=== PATIENT | male | born 1950 | race Two or more races ===

== ENCOUNTER 2018-12-28 09:33 | Inpatient (IN) | payer MEDICARE, MEDICAID ==
[~2018-12-28] VITALS: Ht 165.1 cm; Wt 72.6 kg
[2018-12-28] MEDS ORDERED: SODIUM CHLORIDE 0.9% 1,000 ML IV ONE ×2 (10:24→12:35)
[2018-12-28] MEDS ORDERED: IBUPROFEN 600MG TABLET PO STA (10:24)
[2018-12-28 10:36] LABS: BASOPHILS % 0.4 % (0.0-2.0); EOSINOPHILS % 0.9 % (0.0-5.0); HEMATOCRIT. 32.8 % (42.0-52.0); HEMOGLOBIN. 10.9 g/dL (14.0-18.0); LYMPHOCYTES % 9.3 % (20.0-50.0); MEAN CORPUSCULAR HEMOGLOBIN 29.5 pg (28.0-32.0); MEAN CORPUSCULAR VOLUME 88.9 fL (80.0-94.0); MEAN PLATELET VOLUME 7.2 fl (7.4-10.4); MONOCYTES % 5.2 % (2.0-8.0); NEUTROPHILS % 84.2 % (40.0-76.0); PLATELET 322 x1000/uL (130-400); RED BLOOD CELL COUNT 3.69 mill/uL (4.7-6.1); RED CELL DISTRIBUTION WIDTH 13.6 % (11.6-14.6)
[2018-12-28 10:43] LABS: CHLORIDE 102 mEq/L (98-107)
[2018-12-28 10:46] LABS: INR 2.1; PROTHROMBIN TIME 20.9 sec (9.6-11.0)
[2018-12-28 10:51] LABS: CREATINE KINASE 210 IU/L (39-308)
[2018-12-28] MEDS ORDERED: ONDANSETRON HCL 4MG/2ML INJ IV STA (11:45)
[2018-12-28] MEDS ORDERED: MORPHINE SULFATE 4 MG/ML CPJ (NOT FOR IM USE) IV STA (11:45)
[2018-12-28 12:46] LABS: C REACTIVE PROTEIN QUANT 1.2 mg/L (0.0-3.0)
[2018-12-28 13:53] LABS: CLARITY URINE CLEAR (CLEAR); COLOR URINE YELLOW (YELLOW); KETONES URINE NEGATIVE (NEGATIVE); LEUKOCYTE ESTERASE URINE NEGATIVE (NEGATIVE); NITRITE URINE NEGATIVE (NEGATIVE); OCCULT BLOOD URINE NEGATIVE (NEGATIVE); PH URINE 5.5 (4.5-8.0); PROTEIN URINE 1+ (NEGATIVE); SPECIFIC GRAVITY URINE 1.012 (1.005-1.030); UROBILINOGEN URINE 0.2 E.U./dL (0.2-1.0)
[2018-12-28] MEDS: DEXT 5%/0.9% NACL 1,000 ML IV SCH ×2 (17:00→21:42)
[2018-12-28] MEDS ORDERED: DOCUSATE SODIUM 100MG CAPSULE PO PRN (17:00)
[2018-12-28] MEDS ORDERED: MAGNESIUM/ALUMINUM HYDROXIDE/SIMETHICONE 30ML UDC PO PRN (17:00)
[2018-12-28] MEDS ORDERED: ONDANSETRON HCL 4MG/2ML INJ IV PRN (17:00)
[2018-12-28] MEDS ORDERED: ACETAMINOPHEN 650MG SUPP PR PRN (17:00)
[2018-12-28] MEDS ORDERED: IPRATROPIUM/ALBUTEROL 0.5-3(2.5)MG/3ML NEB NEB PRN (17:00)
[2018-12-28] MEDS ORDERED: AMLODIPINE 5MG TABLET PO SCH (17:00)
[2018-12-28] MEDS ORDERED: CLONIDINE 0.1MG TABLET PO PRN (17:00)
[2018-12-28] MEDS ORDERED: DIPHENHYDRAMINE 50MG/ML VIAL IV PRN (17:00)
[2018-12-28] MEDS ORDERED: ACETAMINOPHEN 325MG TABLET PO PRN (17:00)
[2018-12-28] MEDS ORDERED: NA PHOS,M-B/NA PHOS,DI-BA ENEMA 118ML PR PRN (17:00)
[2018-12-28] MEDS ORDERED: GUAIFENESIN 200MG/10ML SUGAR FREE UDC PO PRN (17:00)
[2018-12-28] MEDS ORDERED: LORAZEPAM 0.5MG TABLET PO PRN (17:00)
[2018-12-28] MEDS ORDERED: PIPERACILLIN/TAZOBACTAM 2.25 G in DEXTROSE 5% WATER 50 ML IV SCH (17:00)
[2018-12-28] MEDS ORDERED: HYDRALAZINE 20MG/ML VIAL IV NR (17:32)
[2018-12-28 20:00] VITALS: BP 143/65
[2018-12-28 20:03] VITALS: BP 143/65
[2018-12-28] MEDS: MORPHINE SULFATE 2 MG/ML CPJ (NOT FOR IM USE) IV PRN (20:12)
[2018-12-28] MEDS ORDERED: FAMOTIDINE 20MG TABLET PO SCH (21:00)
[2018-12-28] MEDS: PIPERACILLIN/TAZOBACTAM 2.25 G in DEXTROSE 5% WATER 50 ML IV SCH (21:42)
[2018-12-28] MEDS: AMLODIPINE 5MG TABLET PO SCH (21:42)
[2018-12-28] MEDS ORDERED: VANCOMYCIN 1500MG in DEXTROSE 5% WATER 250ML IV NR (23:00)
[2018-12-29] VITALS: BP 107/65
[2018-12-29] MEDS: MORPHINE SULFATE 2 MG/ML CPJ (NOT FOR IM USE) IV PRN ×2 (01:47→09:28)
[2018-12-29 03:51] LABS: *BARBITURATES SCREEN URINE NEGATIVE (NEGATIVE); CANNABINOID URINE SCREEN NEGATIVE (NEGATIVE); PHENCYCLIDINE URINE SCREEN NEGATIVE (NEGATIVE)
[2018-12-29 03:52] LABS: *AMPHETAMINES SCREEN URINE NEGATIVE (NEGATIVE); *BENZODIAZEPINES SCREEN URINE NEGATIVE (NEGATIVE); *COCAINE SCREEN URINE NEGATIVE (NEGATIVE); METHADONE URINE SCREEN NEGATIVE (NEGATIVE); OPIATES URINE SCREEN PRESUMTIVE POSITIVE (NEGATIVE)
[2018-12-29 04:00] VITALS: BP 185/83
[2018-12-29] MEDS: PIPERACILLIN/TAZOBACTAM 2.25 G in DEXTROSE 5% WATER 50 ML IV SCH ×2 (04:59→09:28)
[2018-12-29] MEDS: HYDROCODONE/ACETAMINOPHEN 5/325MG TABLET PO PRN ×2 (05:00→10:56)
[2018-12-29 06:51] LABS: BASOPHILS % 0.4 % (0.0-2.0); EOSINOPHILS % 2.7 % (0.0-5.0); HEMOGLOBIN. 10.9 g/dL (14.0-18.0); LYMPHOCYTES % 11.9 % (20.0-50.0); MEAN CORPUSCULAR HEMOGLOBIN 29.5 pg (28.0-32.0); MEAN CORPUSCULAR VOLUME 89.5 fL (80.0-94.0); MEAN PLATELET VOLUME 7.3 fl (7.4-10.4); MONOCYTES % 7.9 % (2.0-8.0); NEUTROPHILS % 77.1 % (40.0-76.0); PLATELET 258 x1000/uL (130-400); RED BLOOD CELL COUNT 3.69 mill/uL (4.7-6.1)
[2018-12-29 06:54] LABS: INR 1.9; PROTHROMBIN TIME 19.5 sec (9.6-11.0)
[2018-12-29 08:00] VITALS: BP 169/73
[2018-12-29 08:40] LABS: CHLORIDE 109 mEq/L (98-107)
[2018-12-29 09:01] LABS: LDL CHOLESTEROL 87 mg/dL (5-100)
[2018-12-29 09:02] LABS: HDL CHOLESTEROL 32 mg/dL (40-59)
[2018-12-29] MEDS: AMLODIPINE 5MG TABLET PO SCH (09:28)
[2018-12-29 11:28] VITALS: BP 125/79
[2018-12-29] MEDS ORDERED: VANCOMYCIN 1 G PREMIX 200 ML IV SCH (14:00)
== END 2018-12-29 13:50 | disposition left against medical advice (07) | DRG 552 ==
LOC: ER 09:33 → 7WST 16:43 → SUPCPDRO 16:45 → CANRESERV 17:12 → ENRESERV 17:12
PROVIDERS: ADMIT Internal Medicine; ATTEND Internal Medicine
DX: M48.061 Spinal stenosis, lumbar region without neurogenic claudication (principal); N17.9 Acute kidney failure, unspecified; C79.51 Secondary malignant neoplasm of bone; D68.59 Other primary thrombophilia; E87.1 Hypo-osmolality and hyponatremia; C61 Malignant neoplasm of prostate; D64.9 Anemia, unspecified; E11.65 Type 2 diabetes mellitus with hyperglycemia; K80.20 Calculus of gallbladder without cholecystitis without obstruction; N13.9 Obstructive and reflux uropathy, unspecified; Z53.21 Procedure and treatment not carried out due to patient leaving prior to being seen by health care provider; D72.829 Elevated white blood cell count, unspecified; R33.8 Other retention of urine; I10 Essential (primary) hypertension; Z79.84 Long term (current) use of oral hypoglycemic drugs; Z79.899 Other long term (current) drug therapy
CPT/HCPCS: 36415; 71045; 71250; 74176; 80061; 80305; 81003; 82550; 82962; 83036; 83735; 84153; 84439; 84443; 84550; 86140; 93308; 93970; 97162; 99285; J2270; J2405; J2543; J3370; J7030; J7042; J7060; A4315; G0103

== ENCOUNTER 2019-04-03 15:49 | Emergency (ER) | payer MEDICARE, MEDICAID ==
[~2019-04-03] VITALS: Ht 162.6 cm; Wt 69.0 kg
[2019-04-03 18:15] VITALS: BP 188/77
[2019-04-03] MEDS ORDERED: SODIUM CHLORIDE 0.9% 1,000 ML IV ONE (18:23)
[2019-04-03 18:51] LABS: BASOPHILS % 0.8 % (0.0-2.0); EOSINOPHILS % 3.6 % (0.0-5.0); HEMATOCRIT. 30.7 % (42.0-52.0); HEMOGLOBIN. 10.1 g/dL (14.0-18.0); LYMPHOCYTES % 11.7 % (20.0-50.0); MEAN CORPUSCULAR HEMOGLOBIN 28.9 pg (28.0-32.0); MEAN PLATELET VOLUME 7.2 fl (7.4-10.4); MONOCYTES % 7.5 % (2.0-8.0); NEUTROPHILS % 76.4 % (40.0-76.0); PLATELET 154 x1000/uL (130-400); RED BLOOD CELL COUNT 3.49 mill/uL (4.7-6.1); RED CELL DISTRIBUTION WIDTH 14.8 % (11.6-14.6)
[2019-04-03 18:55] LABS: CHLORIDE 102 mEq/L (98-107)
[2019-04-03 18:58] LABS: INR 2.1; PARTIAL THROMBOPLASTIN TIME 36.1 sec (23.4-31.0); PROTHROMBIN TIME 20.4 sec (9.6-11.0)
[2019-04-03] MEDS ORDERED: ENOXAPARIN 80MG/0.8ML SYR SUBCUT ONE (19:45)
[2019-04-03] MEDS ORDERED: HEPARIN 5000 UNITS/ML VIAL IV ONE (20:45)
[2019-04-03] MEDS ORDERED: HEPARIN 25,000 UNITS PREMIX 500 ML IV STA (20:45)
[2019-04-03] MEDS ORDERED: HEPARIN BOLUS PRN aPTT <36 IV (22:00)
[2019-04-03] MEDS ORDERED: HEPARIN BOLUS PRN aPTT 37-44 IV (22:00)
[2019-04-03] MEDS ORDERED: HEPARIN 25,000 UNITS PREMIX 500 ML IV SCH (22:00)
[2019-04-03] MEDS ORDERED: CLONIDINE 0.1MG TABLET PO NR (23:22)
== END 2019-04-04 01:45 | disposition left against medical advice (07) ==
LOC: ER 15:49 → EDBEDREQSVC 20:51 → EDBEDREQTM 20:51 → EDBEDREQ 20:51 → CANRESERV 22:56 → ENRESERV 22:56 → ER 04-04 01:45 → CANBEDREQ 04-04 03:35
DX: R23.3 Spontaneous ecchymoses (principal); I82.412 Acute embolism and thrombosis of left femoral vein; D68.9 Coagulation defect, unspecified; I10 Essential (primary) hypertension; E11.9 Type 2 diabetes mellitus without complications
CPT/HCPCS: 36415; 71045; 80053; 85025; 85610; 85730; 86850; 86900; 86901; 93005; 93970; 96365; 96375; 99291; J1644; J7030; J1650

== ENCOUNTER 2019-04-16 21:43 | Inpatient (IN) | payer MEDICARE, MEDICAID ==
[~2019-04-16] VITALS: Ht 170.2 cm; Wt 71.3 kg
[2019-04-16] MEDS: HYDROCODONE/ACETAMINOPHEN 10/325MG TABLET PO ONE ×2 (22:15→22:27)
[2019-04-16 22:57] LABS: BASOPHILS % 0.6 % (0.0-2.0); EOSINOPHILS % 1.5 % (0.0-5.0); HEMATOCRIT. 25.8 % (42.0-52.0); HEMOGLOBIN. 8.3 g/dL (14.0-18.0); LYMPHOCYTES % 11.5 % (20.0-50.0); MEAN CORPUSCULAR HEMOGLOBIN 28.6 pg (28.0-32.0); MEAN CORPUSCULAR VOLUME 88.7 fL (80.0-94.0); MEAN PLATELET VOLUME 6.9 fl (7.4-10.4); NEUTROPHILS % 80.4 % (40.0-76.0); PLATELET 389 x1000/uL (130-400); RED BLOOD CELL COUNT 2.91 mill/uL (4.7-6.1); RED CELL DISTRIBUTION WIDTH 14.9 % (11.6-14.6)
[2019-04-16 23:05] LABS: CHLORIDE 104 mEq/L (98-107)
[2019-04-16 23:08] LABS: INR 1.5; PARTIAL THROMBOPLASTIN TIME 32.9 sec (23.4-31.0); PROTHROMBIN TIME 15.4 sec (9.6-11.0)
[2019-04-16] MEDS ORDERED: ACETAMINOPHEN 500MG TABLET PO ONE (23:15)
[2019-04-17] VITALS (54 sets, daily range): BP systolic 111–160; BP diastolic 45–76
[2019-04-17] MEDS ORDERED: LEVETIRACETAM 500MG PREMIX 100 ML IV ONE (04:15)
[2019-04-17] MEDS ORDERED: HUMAN PROTHROMBIN COMPLX (PCC) 500 UNITS VIAL IV NR (04:30)
[2019-04-17] MEDS ORDERED: ONDANSETRON HCL 4MG/2ML INJ IV PRN (10:00)
[2019-04-17] MEDS: NICARDIPINE 100 MG in SODIUM CHLORIDE 0.9% 60 ML IV PRN ×2 (10:40→18:16)
[2019-04-17] MEDS: DEXT 5%/LACTATED RINGERS 1,000 ML IV SCH (10:41)
[2019-04-17] MEDS: MORPHINE SULFATE 2 MG/ML CPJ (NOT FOR IM USE) IV PRN ×4 (10:43→21:54)
[2019-04-17] MEDS: LEVETIRACETAM 500 MG in SODIUM CHLORIDE 0.9% 100 ML IV SCH ×2 (10:50→22:00)
[2019-04-17] MEDS: PHYTONADIONE 10MG/ML AMP SUBCUT SCH (11:01)
[2019-04-17 13:05] LABS: TOTAL IRON BINDING CAPACITY 364 ug/dL (250-450)
[2019-04-17] MEDS: GABAPENTIN 300MG CAPSULE PO SCH ×2 (14:00→21:54)
[2019-04-17 15:03] LABS: CLARITY URINE CLEAR (CLEAR); COLOR URINE YELLOW (YELLOW); KETONES URINE NEGATIVE (NEGATIVE); LEUKOCYTE ESTERASE URINE NEGATIVE (NEGATIVE); NITRITE URINE NEGATIVE (NEGATIVE); OCCULT BLOOD URINE NEGATIVE (NEGATIVE); PROTEIN URINE TRACE (NEGATIVE)
[2019-04-17 15:22] LABS: *BARBITURATES SCREEN URINE NEGATIVE (NEGATIVE)
[2019-04-17 15:23] LABS: *AMPHETAMINES SCREEN URINE NEGATIVE (NEGATIVE); *BENZODIAZEPINES SCREEN URINE NEGATIVE (NEGATIVE); *COCAINE SCREEN URINE NEGATIVE (NEGATIVE); METHADONE URINE SCREEN NEGATIVE (NEGATIVE); OPIATES URINE SCREEN PRESUMTIVE POSITIVE (NEGATIVE)
[2019-04-17 15:24] LABS: CANNABINOID URINE SCREEN NEGATIVE (NEGATIVE); PHENCYCLIDINE URINE SCREEN NEGATIVE (NEGATIVE)
[2019-04-17] MEDS ORDERED: MORPHINE SULFATE 2 MG/ML CPJ (NOT FOR IM USE) IV PRN (19:45)
[2019-04-18] VITALS (87 sets, daily range): BP systolic 105–131; BP diastolic 41–84
[2019-04-18] MEDS: MORPHINE SULFATE 2 MG/ML CPJ (NOT FOR IM USE) IV PRN ×6 (00:19→22:33)
[2019-04-18] MEDS: NICARDIPINE 100 MG in SODIUM CHLORIDE 0.9% 60 ML IV PRN (02:57)
[2019-04-18] MEDS: GABAPENTIN 300MG CAPSULE PO SCH ×3 (05:29→21:06)
[2019-04-18] MEDS: DEXT 5%/LACTATED RINGERS 1,000 ML IV SCH (05:32)
[2019-04-18 05:36] LABS: BASOPHILS % 0.9 % (0.0-2.0); EOSINOPHILS % 8.6 % (0.0-5.0); HEMATOCRIT. 24.6 % (42.0-52.0); HEMOGLOBIN. 8.1 g/dL (14.0-18.0); LYMPHOCYTES % 17.1 % (20.0-50.0); MEAN CORPUSCULAR HEMOGLOBIN 29.1 pg (28.0-32.0); MEAN CORPUSCULAR VOLUME 88.3 fL (80.0-94.0); MEAN PLATELET VOLUME 6.8 fl (7.4-10.4); MONOCYTES % 7.1 % (2.0-8.0); NEUTROPHILS % 66.3 % (40.0-76.0); PLATELET 420 x1000/uL (130-400); RED BLOOD CELL COUNT 2.79 mill/uL (4.7-6.1); RED CELL DISTRIBUTION WIDTH 14.4 % (11.6-14.6)
[2019-04-18 05:58] LABS: CHLORIDE 108 mEq/L (98-107)
[2019-04-18 09:07] LABS: INR 1.3; PARTIAL THROMBOPLASTIN TIME 28.2 sec (23.4-31.0); PROTHROMBIN TIME 12.8 sec (9.6-11.0)
[2019-04-18] MEDS: LEVETIRACETAM 500MG PREMIX 100 ML IV SCH ×2 (09:16→20:26)
[2019-04-18] MEDS ORDERED: DEXTROSE 50% WATER 50ML SYRINGE IV PRN (10:30)
[2019-04-18] MEDS: PHYTONADIONE 10MG/ML AMP SUBCUT SCH (10:34)
[2019-04-18] MEDS: BLOOD SUGAR DIAGNOSTIC STRIP TEST SCH ×3 (11:48→20:33)
[2019-04-18] MEDS: INSULIN LISPRO 100 UNITS/ML SUBCUT SCH ×3 (11:49→20:38)
[2019-04-18 12:31] LABS: HEMATOCRIT 26.4 % (42.0-52.0); HEMOGLOBIN 8.7 g/dL (14.0-18.0)
[2019-04-18] MEDS ORDERED: METOPROLOL TARTRATE 25MG TABLET PO NR (12:45)
[2019-04-18] MEDS ORDERED: HYDRALAZINE 20MG/ML VIAL IV PRN (12:45)
[2019-04-18] MEDS ORDERED: ACETAMINOPHEN 325MG TABLET PO PRN (13:30)
[2019-04-18] MEDS ORDERED: GUAIFENESIN 200MG/10ML SUGAR FREE UDC PO PRN (13:30)
[2019-04-18] MEDS ORDERED: IPRATROPIUM/ALBUTEROL 0.5-3(2.5)MG/3ML NEB HHN PRN (13:30)
[2019-04-18] MEDS ORDERED: LACTULOSE 20G/30ML UDC PO PRN (13:30)
[2019-04-18] MEDS ORDERED: ACETAMINOPHEN 650MG SUPP PR PRN (13:30)
[2019-04-18] MEDS: AMLODIPINE 5MG TABLET PO SCH (13:58)
[2019-04-18] MEDS: METOPROLOL TARTRATE 25MG TABLET PO SCH (20:38)
[2019-04-19] VITALS (12 sets, daily range): BP systolic 95–136; BP diastolic 37–56
[2019-04-19] MEDS: MORPHINE SULFATE 2 MG/ML CPJ (NOT FOR IM USE) IV PRN ×4 (02:55→20:09)
[2019-04-19] MEDS: GABAPENTIN 300MG CAPSULE PO SCH ×3 (06:22→22:47)
[2019-04-19] MEDS: BLOOD SUGAR DIAGNOSTIC STRIP TEST SCH ×4 (06:32→22:47)
[2019-04-19] MEDS: AMLODIPINE 5MG TABLET PO SCH (08:57)
[2019-04-19] MEDS: INSULIN LISPRO 100 UNITS/ML SUBCUT SCH ×4 (08:59→23:10)
[2019-04-19] MEDS: LEVETIRACETAM 500MG PREMIX 100 ML IV SCH ×2 (09:45→20:10)
[2019-04-19 12:20] LABS: CHLORIDE 105 mEq/L (98-107)
[2019-04-19 12:31] LABS: LDL CHOLESTEROL 82 mg/dL (5-100)
[2019-04-19 12:36] LABS: HDL CHOLESTEROL 27 mg/dL (40-59)
[2019-04-19 13:09] LABS: HEMATOCRIT. 24.9 % (42.0-52.0); HEMOGLOBIN. 8.3 g/dL (14.0-18.0); MEAN CORPUSCULAR HEMOGLOBIN 29.5 pg (28.0-32.0); MEAN CORPUSCULAR VOLUME 88.9 fL (80.0-94.0); MEAN PLATELET VOLUME 6.8 fl (7.4-10.4); PLATELET 413 x1000/uL (130-400); RED BLOOD CELL COUNT 2.81 mill/uL (4.7-6.1); RED CELL DISTRIBUTION WIDTH 14.7 % (11.6-14.6)
[2019-04-19 13:12] LABS: BASOPHILS % 0.5 % (0.0-2.0); EOSINOPHILS % 9.3 % (0.0-5.0); LYMPHOCYTES % 11.7 % (20.0-50.0); MONOCYTES % 5.2 % (2.0-8.0); NEUTROPHILS % 73.3 % (40.0-76.0)
[2019-04-19] MEDS: METOPROLOL TARTRATE 25MG TABLET PO SCH ×2 (13:20→22:47)
[2019-04-19] MEDS: PHYTONADIONE 10MG/ML AMP SUBCUT SCH (13:21)
[2019-04-20] VITALS: BP 131/51
[2019-04-20 04:00] VITALS: BP 125/45
[2019-04-20] MEDS: MORPHINE SULFATE 2 MG/ML CPJ (NOT FOR IM USE) IV PRN ×3 (05:52→15:09)
[2019-04-20] MEDS: BLOOD SUGAR DIAGNOSTIC STRIP TEST SCH (06:13)
[2019-04-20] MEDS: GABAPENTIN 300MG CAPSULE PO SCH ×2 (06:13→15:08)
[2019-04-20 06:36] LABS: HEMOGLOBIN 8.3 g/dL (14.0-18.0)
[2019-04-20 08:00] VITALS: BP 133/48
[2019-04-20] MEDS: INSULIN LISPRO 100 UNITS/ML SUBCUT SCH ×2 (08:10→13:10)
[2019-04-20] MEDS: LEVETIRACETAM 500MG PREMIX 100 ML IV SCH (08:56)
[2019-04-20] MEDS: METOPROLOL TARTRATE 25MG TABLET PO SCH (08:56)
[2019-04-20] MEDS: AMLODIPINE 5MG TABLET PO SCH (08:56)
[2019-04-20] MEDS ORDERED: LEVOFLOXACIN 500MG TABLET PO SCH (11:00)
[2019-04-20 12:00] VITALS: BP 126/49
[2019-04-20 15:52] VITALS: BP_SYST 133; BP_SYST 136; BP_DIAS 52; BP_DIAS 56
== END 2019-04-20 17:58 | DRG 542 ==
LOC: ER 21:43 → MICUNO 04-17 04:23 → ENRESERV 04-17 08:08 → 7WST 04-19 02:25
PROVIDERS: ADMIT Internal Medicine; ATTEND Internal Medicine
DX: C79.51 Secondary malignant neoplasm of bone (principal); I62.00 Nontraumatic subdural hemorrhage, unspecified; I82.512 Chronic embolism and thrombosis of left femoral vein; D68.9 Coagulation defect, unspecified; E87.1 Hypo-osmolality and hyponatremia; J84.9 Interstitial pulmonary disease, unspecified; G62.9 Polyneuropathy, unspecified; C61 Malignant neoplasm of prostate; D64.9 Anemia, unspecified; E11.41 Type 2 diabetes mellitus with diabetic mononeuropathy; G57.90 Unspecified mononeuropathy of unspecified lower limb; I10 Essential (primary) hypertension; E11.51 Type 2 diabetes mellitus with diabetic peripheral angiopathy without gangrene; M47.816 Spondylosis without myelopathy or radiculopathy, lumbar region; M48.061 Spinal stenosis, lumbar region without neurogenic claudication; M47.817 Spondylosis without myelopathy or radiculopathy, lumbosacral region; R74.8 Abnormal levels of other serum enzymes; R58 Hemorrhage, not elsewhere classified; T45.515A Adverse effect of anticoagulants, initial encounter; Y92.89 Other specified places as the place of occurrence of the external cause
CPT/HCPCS: 36415; 71045; 72131; 80048; 80053; 80061; 80305; 81003; 82728; 82962; 83036; 83540; 83550; 83880; 84153; 84484; 85014; 85018; 85025; 85044; 86850; 86900; 93005; 93923; 93970; 96365; 97162; 99291; C9132; J1815; J1953; J2270; J3430; J3490; J7050; J7121; G0103

== ENCOUNTER 2019-07-15 02:40 | Inpatient (IN) | payer MEDICARE, MEDICAID ==
[~2019-07-15] VITALS: Ht 172.7 cm; Wt 71.2 kg
[2019-07-15] VITALS (31 sets, daily range): BP systolic 80–148; BP diastolic 45–72
[2019-07-15 03:51] LABS: CLARITY URINE CLEAR (CLEAR); COLOR URINE YELLOW (YELLOW); KETONES URINE TRACE (NEGATIVE); LEUKOCYTE ESTERASE URINE NEGATIVE (NEGATIVE); NITRITE URINE NEGATIVE (NEGATIVE); OCCULT BLOOD URINE TRACE (NEGATIVE); PROTEIN URINE 2+ (NEGATIVE); SPECIFIC GRAVITY URINE 1.009 (1.005-1.030); UROBILINOGEN URINE 0.2 E.U./dL (0.2-1.0)
[2019-07-15 03:52] LABS: BASOPHILS % 0.2 % (0.0-2.0); EOSINOPHILS % 0.5 % (0.0-5.0); HEMATOCRIT. 27.7 % (42.0-52.0); HEMOGLOBIN. 9.2 g/dL (14.0-18.0); LYMPHOCYTES % 9.4 % (20.0-50.0); MEAN CORPUSCULAR HEMOGLOBIN 29.3 pg (28.0-32.0); MEAN CORPUSCULAR VOLUME 88.4 fL (80.0-94.0); MEAN PLATELET VOLUME 6.9 fl (7.4-10.4); MONOCYTES % 5.9 % (2.0-8.0); PLATELET 155 x1000/uL (130-400); RED BLOOD CELL COUNT 3.14 mill/uL (4.7-6.1); RED CELL DISTRIBUTION WIDTH 15.3 % (11.6-14.6)
[2019-07-15 03:58] LABS: CHLORIDE 96 mEq/L (98-107)
[2019-07-15 04:04] LABS: ETHANOL BLOOD < 10 mg/dL
[2019-07-15 04:06] LABS: LDL CHOLESTEROL 119 mg/dL (5-100)
[2019-07-15 04:10] LABS: INR 3.7; PROTHROMBIN TIME 38.7 sec (9.6-11.0)
[2019-07-15] MEDS ORDERED: IOHEXOL-350 100 ML BOTTLE ONE (04:10)
[2019-07-15] MEDS ORDERED: ETOMIDATE 2MG/ML 10ML VIAL IV ONE (04:26)
[2019-07-15] MEDS ORDERED: SUCCINYLCHOLINE CHLORIDE 200MG/10ML IV ONE (04:26)
[2019-07-15] MEDS ORDERED: PROPOFOL 10MG/ML 100ML 100 ML IV SCH (04:30)
[2019-07-15] MEDS ORDERED: TRANEXAMIC ACID 1,000 MG/10 ML IV ONE (04:30)
[2019-07-15] MEDS ORDERED: MANNITOL 12.5G (25%) VIAL 50ML IV ONE (04:30)
[2019-07-15] MEDS ORDERED: LABETALOL 5MG/ML SYR 20 MG/4 ML SYRINGE IV ONE (04:30)
[2019-07-15 04:41] LABS: *AMPHETAMINES SCREEN URINE NEGATIVE (NEGATIVE); *BARBITURATES SCREEN URINE NEGATIVE (NEGATIVE); *BENZODIAZEPINES SCREEN URINE NEGATIVE (NEGATIVE); *COCAINE SCREEN URINE NEGATIVE (NEGATIVE); METHADONE URINE SCREEN NEGATIVE (NEGATIVE); OPIATES URINE SCREEN PRESUMTIVE POSITIVE (NEGATIVE)
[2019-07-15 04:42] LABS: CANNABINOID URINE SCREEN NEGATIVE (NEGATIVE); PHENCYCLIDINE URINE SCREEN NEGATIVE (NEGATIVE)
[2019-07-15 05:01] LABS: BG BASE EXCESS -5.8 mmol/L (-2.0-2.0); BG CARBOXYHEMOGLOBIN 0.3 % (0.5-1.5); BG FRACTION INSPIRED OXYGEN 100; BG HCO3 ACT 17.2 mmol/L (22.0-26.0); BG METHEMOGLOBIN 0.5 % (0.0-1.5); BG OXYHEMOGLOBIN 98.2 % (94.0-97.0); BG PCO2 26.1 mmHg (35.0-45.0); BG PH 7.438 (7.350-7.450); BG PO2 252.8 mmHg (75.0-100.0); BG SAMPLE SITE RIGHT BRACHIAL; BG TIDAL VOLUME(mL) 500 mL; BG TOTAL HEMOGLOBIN 9.5 g/dL (12.0-18.0); BG VENT MODE VENT - A/C; BG VENT RATE 14 set
[2019-07-15] MEDS ORDERED: NICARDIPINE 40MG/200ML PREMIX 200 ML IV STA (06:23)
[2019-07-15] MEDS ORDERED: NICARDIPINE 40MG/200ML PREMIX 200 ML IV PRN (06:30)
[2019-07-15] MEDS ORDERED: MANNITOL 20% 62.5 ML IV SCH (07:15)
[2019-07-15] MEDS ORDERED: NOREPINEPHRINE 4MG/250ML PMX 250 ML IV ONE (08:00)
[2019-07-15] MEDS ORDERED: PHENYLEPHRINE 20 MG in DEXT 5% WATER 248 ML IV ONE ×3 (08:15→14:30)
[2019-07-15] MEDS ORDERED: NOREPINEPHRINE 4 MG in DEXT 5% WATER 246 ML IV ONE (08:15)
[2019-07-15 08:27] LABS: BG BASE EXCESS -8.7 mmol/L (-2.0-2.0); BG CARBOXYHEMOGLOBIN 0.3 % (0.5-1.5); BG DEOXYHEMOGLOBIN 0.4 % (0.0-5.0); BG HCO3 ACT 17.9 mmol/L (22.0-26.0); BG METHEMOGLOBIN 0.6 % (0.0-1.5); BG OXYGEN SATURATION 99.6 % (92.0-98.5); BG OXYHEMOGLOBIN 98.7 % (94.0-97.0); BG PCO2 41.9 mmHg (35.0-45.0); BG PH 7.249 (7.350-7.450); BG SAMPLE SITE RIGHT BRACHIAL; BG TIDAL VOLUME(mL) 500 mL; BG VENT MODE VENT - A/C; BG VENT RATE 14 set
[2019-07-15] MEDS ORDERED: NOREPINEPHRINE 4MG/250ML PMX 250 ML IV PRN (08:30)
[2019-07-15] MEDS ORDERED: MORPHINE SULFATE 2 MG/ML CPJ (NOT FOR IM USE) IV PRN (11:00)
[2019-07-15] MEDS ORDERED: NICARDIPINE 100 MG in SODIUM CHLORIDE 0.9% 60 ML IV PRN ×2 (11:00→15:00)
[2019-07-15] MEDS ORDERED: DEXT 5%/LACTATED RINGERS 1,000 ML IV SCH (12:00)
[2019-07-15] MEDS: DEXAMETHASONE 4MG/ML 1ML VIAL IV SCH ×3 (12:20→23:49)
[2019-07-15] MEDS ORDERED: PHENYLEPHRINE 20 MG in DEXT 5% WATER 248 ML IV PRN (13:15)
[2019-07-15] MEDS ORDERED: DEXTROSE 50% WATER 50ML SYRINGE IV PRN (13:15)
[2019-07-15] MEDS ORDERED: BISACODYL 10MG SUPP PR PRN (13:15)
[2019-07-15] MEDS ORDERED: NOREPINEPHRINE 8 MG in DEXT 5% WATER 242 ML IV PRN (13:15)
[2019-07-15] MEDS ORDERED: IPRATROPIUM/ALBUTEROL 0.5-3(2.5)MG/3ML NEB HHN PRN (13:15)
[2019-07-15] MEDS ORDERED: MANNITOL 20% (20GM/100ML) BAG 500ML PREMIX IV ONE (14:30)
[2019-07-15] MEDS ORDERED: SODIUM BICARBONATE 8.4% 1 MEQ/ML 50ML SYR IV NR (14:47)
[2019-07-15] MEDS: BLOOD SUGAR DIAGNOSTIC STRIP TEST SCH ×4 (14:48→23:49)
[2019-07-15] MEDS ORDERED: CEFAZOLIN 1000MG PREMIX 50 ML IV SCH (14:51)
[2019-07-15] MEDS ORDERED: LEVETIRACETAM 500MG PREMIX 100 ML IV SCH (14:52)
[2019-07-15] MEDS ORDERED: SODIUM CHLORIDE 0.9% 1,000 ML IV SCH (14:54)
[2019-07-15] MEDS: PANTOPRAZOLE SODIUM 40 MG/VIAL IV SCH (15:01)
[2019-07-15] MEDS ORDERED: VANCOMYCIN 1 G PREMIX 200 ML IV SCH ×2 (16:00→23:00)
[2019-07-15] MEDS ORDERED: PIPERACILLIN/TAZ 3.375G PREMIX 50 ML IV ONE (16:00)
[2019-07-15 16:25] LABS: BG BASE EXCESS 1.5 mmol/L (-2.0-2.0); BG CARBOXYHEMOGLOBIN 0.3 % (0.5-1.5); BG DEOXYHEMOGLOBIN 1.5 % (0.0-5.0); BG FRACTION INSPIRED OXYGEN 100; BG HCO3 ACT 25.9 mmol/L (22.0-26.0); BG METHEMOGLOBIN 0.1 % (0.0-1.5); BG OXYGEN SATURATION 98.5 % (92.0-98.5); BG OXYHEMOGLOBIN 98.1 % (94.0-97.0); BG PCO2 39.6 mmHg (35.0-45.0); BG PH 7.433 (7.350-7.450); BG PO2 167.4 mmHg (75.0-100.0); BG SAMPLE SITE RIGHT RADIAL; BG TIDAL VOLUME(mL) 500 mL; BG TOTAL HEMOGLOBIN 8.1 g/dL (12.0-18.0); BG VENT MODE VENT - A/C; BG VENT RATE 14 set
[2019-07-15 17:21] LABS: CHLORIDE 98 mEq/L (98-107)
[2019-07-15 17:24] LABS: HEMATOCRIT. 22.9 % (42.0-52.0); HEMOGLOBIN. 7.5 g/dL (14.0-18.0); MEAN CORPUSCULAR HEMOGLOBIN 29.2 pg (28.0-32.0); MEAN CORPUSCULAR VOLUME 88.9 fL (80.0-94.0); PLATELET 117 x1000/uL (130-400); RED BLOOD CELL COUNT 2.58 mill/uL (4.7-6.1); RED CELL DISTRIBUTION WIDTH 15.2 % (11.6-14.6)
[2019-07-15 17:32] LABS: INR 1.8; PARTIAL THROMBOPLASTIN TIME 35.3 sec (23.4-31.0); PROTHROMBIN TIME 19.4 sec (9.6-11.0)
[2019-07-15 18:01] LABS: PLATELET ESTIMATE DECREASED
[2019-07-15 18:04] LABS: D-DIMER > 35.20 mg/L FEU (<0.50)
[2019-07-15] MEDS: INSULIN LISPRO 100 UNITS/ML SUBCUT SCH ×2 (18:25→22:24)
[2019-07-15] MEDS: NOREPINEPHRINE 8 MG in DEXT 5% WATER 242 ML IV PRN (18:57)
[2019-07-15] MEDS: PHENYLEPHRINE 20 MG in DEXT 5% WATER 248 ML IV PRN ×2 (19:53→20:23)
[2019-07-15] MEDS: LEVETIRACETAM 500MG PREMIX 100 ML IV SCH (22:22)
[2019-07-15] MEDS: CEFAZOLIN 1000MG PREMIX 50 ML IV SCH (22:22)
[2019-07-16] VITALS (58 sets, daily range): BP systolic 28–149; BP diastolic 17–70
[2019-07-16] MEDS: INSULIN LISPRO 100 UNITS/ML SUBCUT SCH ×4 (01:21→18:00)
[2019-07-16] MEDS: PHENYLEPHRINE 20 MG in DEXT 5% WATER 248 ML IV PRN (03:10)
[2019-07-16] MEDS: NOREPINEPHRINE 8 MG in DEXT 5% WATER 242 ML IV PRN (04:32)
[2019-07-16] MEDS: BLOOD SUGAR DIAGNOSTIC STRIP TEST SCH ×3 (05:41→18:00)
[2019-07-16] MEDS: DEXAMETHASONE 4MG/ML 1ML VIAL IV SCH ×3 (06:06→18:00)
[2019-07-16] MEDS: CEFAZOLIN 1000MG PREMIX 50 ML IV SCH (06:06)
[2019-07-16 07:37] LABS: INR 1.5; PROTHROMBIN TIME 16.1 sec (9.6-11.0)
[2019-07-16 07:44] LABS: CHLORIDE 96 mEq/L (98-107)
[2019-07-16 07:45] LABS: MEAN CORPUSCULAR HEMOGLOBIN 28.7 pg (28.0-32.0); MEAN CORPUSCULAR VOLUME 88.2 fL (80.0-94.0); MEAN PLATELET VOLUME 8.7 fl (7.4-10.4); PLATELET 99 x1000/uL (130-400); RED BLOOD CELL COUNT 2.34 mill/uL (4.7-6.1); RED CELL DISTRIBUTION WIDTH 15.2 % (11.6-14.6)
[2019-07-16 07:55] LABS: HEMATOCRIT. 20.6 % (42.0-52.0); HEMOGLOBIN. 6.7 g/dL (14.0-18.0)
[2019-07-16] MEDS: LEVETIRACETAM 500MG PREMIX 100 ML IV SCH (09:23)
[2019-07-16] MEDS: PANTOPRAZOLE SODIUM 40 MG/VIAL IV SCH (09:23)
[2019-07-16 09:39] LABS: PLATELET ESTIMATE DECREASED
[2019-07-16 09:46] LABS: BG BASE EXCESS -1.8 mmol/L (-2.0-2.0); BG CARBOXYHEMOGLOBIN 0.3 % (0.5-1.5); BG DEOXYHEMOGLOBIN 0.7 % (0.0-5.0); BG FRACTION INSPIRED OXYGEN 100; BG HCO3 ACT 24.7 mmol/L (22.0-26.0); BG METHEMOGLOBIN 0.8 % (0.0-1.5); BG OXYGEN SATURATION 99.3 % (92.0-98.5); BG OXYHEMOGLOBIN 98.2 % (94.0-97.0); BG PCO2 51.4 mmHg (35.0-45.0); BG PH 7.299 (7.350-7.450); BG PO2 223.4 mmHg (75.0-100.0); BG SAMPLE SITE RIGHT RADIAL; BG TIDAL VOLUME(mL) 500 mL; BG TOTAL HEMOGLOBIN 7.2 g/dL (12.0-18.0); BG VENT MODE VENT - A/C; BG VENT RATE 14 set
[2019-07-16] MEDS ORDERED: CEFTRIAXONE 1 G PREMIX 50 ML IV SCH (13:00)
[2019-07-16] MEDS ORDERED: DOXYCYCLINE 100 MG in DEXT 5% WATER 100 ML IV SCH (14:00)
[2019-07-16] MEDS ORDERED: VANCOMYCIN 1 G PREMIX 200 ML IV SCH (18:00)
== END 2019-07-16 15:07 | disposition expired | DRG 853 ==
LOC: ER 02:40 → EDBEDREQSVC 05:13 → EDBEDREQTM 05:13 → EDBEDREQ 05:13 → 5EST 05:55 → CANRESERV 11:25 → ENRESERV 11:25 → EDBEDREQ 14:49 → ENRESERV 15:32
PROVIDERS: ADMIT Internal Medicine; ATTEND Internal Medicine
PROC: 009630Z Drainage of Cerebral Ventricle with Drainage Device, Percutaneous Approach (ICD-10-PCS; principal; 2019-07-15)
PROC: 30233K1 Transfusion of Nonautologous Frozen Plasma into Peripheral Vein, Percutaneous Approach (ICD-10-PCS; 2019-07-15)
PROC: 0BH17EZ Insertion of Endotracheal Airway into Trachea, Via Natural or Artificial Opening (ICD-10-PCS; 2019-07-15)
PROC: 5A1945Z Respiratory Ventilation, 24-96 Consecutive Hours (ICD-10-PCS; 2019-07-15)
PROC: 5A12012 Performance of Cardiac Output, Single, Manual (ICD-10-PCS; 2019-07-15)
PROC: 06HY33Z Insertion of Infusion Device into Lower Vein, Percutaneous Approach (ICD-10-PCS; 2019-07-15)
PROC: 4A103BD Monitoring of Intracranial Pressure, Percutaneous Approach (ICD-10-PCS; 2019-07-15)
DX: A41.9 Sepsis, unspecified organism (principal); I61.5 Nontraumatic intracerebral hemorrhage, intraventricular; J69.0 Pneumonitis due to inhalation of food and vomit; J96.90 Respiratory failure, unspecified, unspecified whether with hypoxia or hypercapnia; I60.9 Nontraumatic subarachnoid hemorrhage, unspecified; E87.1 Hypo-osmolality and hyponatremia; G93.49 Other encephalopathy; C79.51 Secondary malignant neoplasm of bone; D68.9 Coagulation defect, unspecified; E87.2 Acidosis; R47.01 Aphasia; Z66 Do not resuscitate; E11.65 Type 2 diabetes mellitus with hyperglycemia; R74.0 Nonspecific elevation of levels of transaminase and lactic acid dehydrogenase [LDH]; R91.8 Other nonspecific abnormal finding of lung field; R40.2432 Glasgow coma scale score 3-8, at arrival to emergency department; C61 Malignant neoplasm of prostate; D64.9 Anemia, unspecified; R00.1 Bradycardia, unspecified; D72.810 Lymphocytopenia; I10 Essential (primary) hypertension; I46.9 Cardiac arrest, cause unspecified; Z20.828 Contact with and (suspected) exposure to other viral communicable diseases; I16.0 Hypertensive urgency; I65.23 Occlusion and stenosis of bilateral carotid arteries; Z78.1 Physical restraint status
CPT/HCPCS: 36415; 36600; 70496; 70498; 71045; 80053; 80305; 80320; 81003; 82140; 82375; 82728; 82805; 82962; 83036; 83615; 83721; 84145; 84153; 84484; 85025; 85379; 86850; 86900; 86927; 87635; 93005; 99291; C9113; J0330; J0690; J0696; J1100; J1815; J1953; J2150; J2370; J2704; J3370; J3490; J7050; J7060; P9017; Q9967; G0103; G0480